=== PATIENT | female | born 1995 | race Caucasian/White ===

== ENCOUNTER → 2018-04-10 15:53 | Outpatient (REF) | payer OTHER, SELFPAY ==
--- NOTE | 2018-04-10 15:30 | PAPFT_PTH ---
PATIENT: Cassie Soto LOC: [facility] U#:[id number] AGE/SX: 30/F ROOM: RE04/10/[address]: Miguelina Kenney : 1995 BED: DIS: SPEC #: [id number] RECD: 04/11/18 12:46 STATUS: BOYD REQ #: [id number] YAAKOV: 04/10/18 15:[address]: Miguelina Kenney DEPT: [facility] Cytology RECD BY: Jamaica Corado ENTERED: 04/11/18 12:46 SP TYPE: PAPFT OTHR DR: Miriam Stone Tissues: 1 - CX/ENDOCX FOR PAP SMEARS Procedures: PAP THIN PREP/UVM Screening Comments: [id number]
== END ==
LOC: NCHCN 15:53
PROVIDERS: Visit Provider Family Medicine
DX: Z12.4 Encounter for screening for malignant neoplasm of cervix (principal); Z11.51 Encounter for screening for human papillomavirus (HPV)
CPT/HCPCS: 88142; 87624

== ENCOUNTER 2020-07-28 14:03 | Outpatient (REF) | payer BC, SELFPAY ==
[2020-08-01 07:30] LABS: SARS-CoV-2 RNA Undetected (Undetected); SARS-CoV-2 Specimen Source Nasal
== END 2020-07-28 14:23 ==
LOC: NCHCN 14:03
PROVIDERS: Visit Provider Family Medicine
DX: Z20.828 Contact with and (suspected) exposure to other viral communicable diseases (principal)
CPT/HCPCS: U0003

== ENCOUNTER 2021-04-21 09:38 | Outpatient (REF) | payer BC, SELFPAY ==
--- NOTE | 2021-04-21 09:00 | PAPFT_PTH ---
PATIENT: Cassie Soto LOC: [facility] U#:[id number] AGE/SX: 25/F ROOM: RE04/21/[address]: Miguelina Kenney : 1995 BED: DIS: 04/21/2021 SPEC #: [id number] RECD: 04/21/21 17:51 STATUS: BOYD REShon #: [id number] YAAKOV: 04/21/21 09:[address]: Miguelina Kenney DEPT: [facility] Cytology RECD BY: Jamaica Corado ENTERED: 04/21/21 17:51 SP TYPE: PAPFT OTHR DR: Miriam Stone Tissues: 1 - CX/ENDOCX FOR PAP SMEARS Procedures: PAP THIN PREP/UVM Screening Comments: [id number] (CHLAMYDIA/GC)
[2021-04-22 15:20] LABS: Chlamydia Result Negative (Negative); GC Result Negative (Negative)
== END 2021-04-21 09:39 | disposition home or self-care (01) ==
LOC: NCHCN 09:38
PROVIDERS: Visit Provider Family Medicine
DX: Z00.00 Encounter for general adult medical examination without abnormal findings (principal); Z12.4 Encounter for screening for malignant neoplasm of cervix; Z01.419 Encounter for gynecological examination (general) (routine) without abnormal findings
CPT/HCPCS: 87491; 87591; 88142

== ENCOUNTER 2022-04-04 13:18 | Outpatient (REF) | payer BC, SELFPAY ==
[2022-04-04 15:01] LABS: HCT 39.4 % (36.0-46.0); HGB 13.6 g/dL (11.2-15.7); MCH 30.8 pg (27.0-33.0); MCHC 34.5 % (32.0-36.0); MCV 89 fL (80-95); MPV 10.5 fL (8.0-11.0); Platelet Count 271 10^3/uL (130-400); RBC 4.41 10^6/uL (3.93-5.22); RDW-SD 38.9 fL; WBC 6.52 10^3/uL (4.4-10.8)
[2022-04-04 15:10] LABS: TSH (W/Ref FT4) 1.25 uIU/mL (0.36-3.74)
== END 2022-04-04 13:19 | disposition home or self-care (01) ==
LOC: NCHCN 13:18
PROVIDERS: Visit Provider Nurse Practitioner Family
DX: F41.9 Anxiety disorder, unspecified (principal)
CPT/HCPCS: 85027; 84443

== ENCOUNTER 2024-05-19 12:32 | Outpatient (REF) | payer BC, SELFPAY ==
--- NOTE | 2024-05-16 14:30 | PAPFT_PTH ---
PATIENT: Cassie Soto LOC: [facility] U#:[id number] AGE/SX: 28/F ROOM: RE05/19/[address]: Zaira Brown : 1995 BED: DIS: 05/19/2024 SPEC #: [id number] RECD: 05/19/24 13:02 STATUS: BOYD REShon #: [id number] YAAKOV: 05/16/24 14:[address]: Zaira Brown DEPT: [facility] Cytology RECD BY: Jamaica Corado Tissues: 1 - CX/ENDOCX FOR PAP SMEARS Procedures: PAP THIN PREP/UVM Screening Comments: [id number]
== END 2024-05-19 12:33 | disposition home or self-care (01) ==
LOC: LBN 12:32
PROVIDERS: PCP Nurse Practitioner Family; Visit Provider Nurse Practitioner Family
DX: Z12.4 Encounter for screening for malignant neoplasm of cervix (principal)
CPT/HCPCS: 88142

== ENCOUNTER 2024-09-17 02:54 | Outpatient (CLI) | payer BC, SELFPAY ==
[2024-09-17 15:40] LABS: Panorama Kit Sent via Fed Ex
[2024-09-17 15:44] LABS: Abs Immature Grans 0.02 10^3/uL (0.0-0.06); Absolute Basophil Count 0.02 10^3/uL (0.0-0.2); Absolute Eosinophil Count 0.17 10^3/uL (0.0-0.7); Absolute Monocyte Count 0.55 10^3/uL (0.1-0.8); Absolute Neutrophil Count 5.52 10^3/uL (1.2-6.7); Basophils % 0.2 %; HCT 35.9 % (36.0-46.0); HGB 12.5 g/dL (11.2-15.7); Immature Grans % 0.2 %; Lymphocytes % 27.6 %; MCH 30.7 pg (27.0-33.0); MCHC 34.8 % (32.0-36.0); MCV 88 fL (80-95); MPV 9.4 fL (8.0-11.0); Monocytes % 6.3 %; Neutrophils % 63.7 %; Platelet Count 247 10^3/uL (130-400); RBC 4.07 10^6/uL (3.93-5.22); RDW 12.3 % (11.7-14.6); RDW-SD 39.5 fL; WBC 8.68 10^3/uL (4.4-10.8)
[2024-09-17 16:29] LABS: TSH (W/Ref FT4) 1.21 uIU/mL (0.36-3.74); Vitamin D 25 Total 26.6 ng/mL (30-100)
[2024-09-18 19:38] LABS: HIV-1/2 Ag & Ab Screen Negative (Negative)
[2024-09-18 20:10] LABS: Hepatitis B Surface Ag Negative (Negative)
[2024-09-18 20:38] LABS: Hepatitis C Ab w Rflx HCV PCR Negative (Negative)
[2024-09-19 10:19] LABS: Rubella IgG Ab (UVM) Negative (See Note)
[2024-09-19 10:24] LABS: Varicella IgG Antibody Positive (See Note)
[2024-09-21 14:18] LABS: Syphilis IgG w/Reflex Nonreactive (Nonreactive)
[2024-09-23 18:04] LABS: Specimen WB Whole Blood
[2024-09-29 12:32] LABS: Result Summary NEGATIVE; Specimen WB Whole Blood
== END 2024-09-17 02:55 | disposition home or self-care (01) ==
LOC: LBO 02:54
PROVIDERS: Advanced Practice Midwife; PCP Nurse Practitioner Family; Visit Provider Advanced Practice Midwife
DX: Z34.91 Encounter for supervision of normal pregnancy, unspecified, first trimester (principal)
CPT/HCPCS: 36415; 81220; 81222; 81329; 82306; 86787; 86803; 86850; 86900; 86901; 87340; 87389; 84443; 85025; 86762; 86780

== ENCOUNTER 2024-09-17 15:04 | Outpatient (REF) | payer BC, SELFPAY ==
[2024-09-17 16:41] LABS: *AMPHETAMINES SCREEN URINE Negative (Negative); *BARBITURATES SCREEN URINE Negative (Negative); *BENZODIAZEPINES SCREEN URINE Negative (Negative); Cannabinoids THC Negative (Negative); Cocaine Screen,Urine Negative (Negative); METHADONE URINE SCREEN Negative (Negative); OPIATES URINE SCREEN Negative (Negative)
[2024-09-17 16:46] LABS: Tricyclic Antidepressants Negative (Negative)
[2024-09-19 11:59] LABS: Chlamydia Result Negative (Negative); GC Result Negative (Negative)
[2024-09-23 08:30] LABS: Buprenorphine Negative ng/mL (Cutoff: 5.0); Norbuprenorphine Negative ng/mL (Cutoff: 2.5)
== END 2024-09-17 15:05 | disposition home or self-care (01) ==
LOC: LBN 15:04
PROVIDERS: PCP Nurse Practitioner Family; Visit Provider Advanced Practice Midwife
DX: Z34.91 Encounter for supervision of normal pregnancy, unspecified, first trimester (principal)
CPT/HCPCS: 80307; 80348; 87491; 87591; 87086

== ENCOUNTER 2025-01-12 04:37 | Outpatient (CLI) | payer BC, SELFPAY ==
[2025-01-12 13:34] LABS: HCT 35.5 % (36.0-46.0); HGB 12.3 g/dL (11.2-15.7); MCH 30.8 pg (27.0-33.0); MCHC 34.6 % (32.0-36.0); MCV 89 fL (80-95); MPV 9.5 fL (8.0-11.0); Platelet Count 256 10^3/uL (130-400); RBC 3.99 10^6/uL (3.93-5.22); RDW 12.9 % (11.7-14.6); RDW-SD 42.3 fL; WBC 11.22 10^3/uL (4.4-10.8)
[2025-01-12 14:20] LABS: Glucose,1 Hr (Glucola) 99 mg/dL (80-140)
== END 2025-01-12 04:38 | disposition home or self-care (01) ==
LOC: LBO 04:37
PROVIDERS: PCP Nurse Practitioner Family; Visit Provider Advanced Practice Midwife
DX: Z34.92 Encounter for supervision of normal pregnancy, unspecified, second trimester (principal)
CPT/HCPCS: 36415; 82950; 85027; 86850; 90384

== ENCOUNTER 2025-01-12 15:11 | Outpatient (REF) | payer BC, SELFPAY ==
[2025-01-12 16:37] LABS: *AMPHETAMINES SCREEN URINE Negative (Negative); *BARBITURATES SCREEN URINE Negative (Negative); *BENZODIAZEPINES SCREEN URINE Negative (Negative); Cannabinoids THC Negative (Negative); Cocaine Screen,Urine Negative (Negative); METHADONE URINE SCREEN Negative (Negative); OPIATES URINE SCREEN Negative (Negative)
[2025-01-12 16:38] LABS: Tricyclic Antidepressants Negative (Negative)
[2025-01-13 12:24] LABS: Fentanyl Scr w/Rfx Confirm Negative ng/mL (<1)
[2025-01-17 12:58] LABS: Buprenorphine Negative ng/mL (Cutoff: 5.0); Norbuprenorphine Negative ng/mL (Cutoff: 2.5)
== END 2025-01-12 15:12 | disposition home or self-care (01) ==
LOC: LBN 15:11
PROVIDERS: Advanced Practice Midwife; PCP Nurse Practitioner Family; Visit Provider Advanced Practice Midwife
DX: Z34.93 Encounter for supervision of normal pregnancy, unspecified, third trimester (principal); Z3A.28 28 weeks gestation of pregnancy
CPT/HCPCS: 80307; 80348

== ENCOUNTER 2025-02-11 02:06 | Outpatient (CLI) | payer BC, SELFPAY ==
--- NOTE | 2025-02-11 06:30 | DI.US_ITS ---
Exam(s) US OB DELANEY WEIGHT EXAM: US OB DELANEY WEIGHT CLINICAL HISTORY: S>D,uterine size discrepancy,O26.849. TECHNIQUE: Transabdominal obstetrical ultrasound performed. COMPARISON: US US OB F/U FACIAL/LVOT/RVOT from 12/03/2024 FINDINGS: Number of fetuses: 1 position: CEPHALUC Placental location: There is a grade 2 posterior and fundal placenta. No evidence of previa. BIOMETRIC DATA: BPD: 9.51cm, 38weeks 6days HC: 34.77cm, 40weeks 2days AC: 33.64cm, 37weeks 4days FL: 6.47cm, 33weeks 3days EFW: 3,085.04g, 7lb, 97% Composite Age: 37weeks 4days BABAK: 02/28/2025 Heart Rate: 125bpm Amniotic fluid index: 17.95cm. The largest pocket measures 7.3 cm. IMPRESSION: 1. Single live intrauterine gestation as above. 2. The femur length corresponds to 33 weeks 3 days. 3. Estimated weight is 3085gms. This is greater than the 97th percentile. 4. Amniotic fluid index is 18 cm. The largest pocket measures 7.3 cm. DATA REPOSITORY:
== END 2025-02-11 02:26 ==
LOC: DI 02:06
PROVIDERS: PCP Nurse Practitioner Family; Visit Provider Advanced Practice Midwife
DX: O26.843 Uterine size-date discrepancy, third trimester (principal); Z3A.40 40 weeks gestation of pregnancy
CPT/HCPCS: 76816

== ENCOUNTER 2025-03-04 10:27 | Outpatient (REF) | payer BC, SELFPAY | END 2025-03-04 10:28 | disposition home or self-care (01) | LOC: LBN 10:27 | PROVIDERS: PCP Nurse Practitioner Family; Visit Provider Advanced Practice Midwife | DX: Z34.01 Encounter for supervision of normal first pregnancy, first trimester (principal) | CPT/HCPCS: 87081 ==

== ENCOUNTER 2025-03-23 11:06 | Inpatient (IN) | payer BC, SELFPAY ==
[2025-03-23] VITALS (76 sets, daily range): BP systolic 84–144; BP diastolic 52–93; PULSE 54–198; RESP 16–17; TEMP 36.5–38.3; O2SAT 83–100; BMI 34.7
--- NOTE | 2025-03-23 11:10 | HPE_ITS ---
Date of service: 03/23/25 Time of Service: 11:10 Assessment and Plan Assessment and plan (1) PROM with onset of labor within 24 hours of rupture: Status: Acute Assessment and plan: A: 29 yo G1 @ 38+5 wks, PROM @ 0600, clear fluid, confirmed Spontaneous onset early labor, GBS negative No increased risk of SD or PPH Category 1 tracing on admission, favorable cvx with Schaefer score=8 P: Admit to L&S, draw CBC and T&S Expectant management at this time Monitor for progression of labor May make recommendation, review options for IOL @ 1800 (12 hrs PROM) Anticipate OB-HPI Labor/Delivery History of Present Illness Reason for Visit: PROM @ TERM Chief Complaint: Suspected Rupture of Membranes , Associated Signs and Symptoms of Suspected ROM: large gush of fluid upon waking at 0600 today, increasing contractions afterwards. No bleeding, no nausea or vomiting.. BABAK Calculator Estimated Delivery Date Method Current WG Current Estimate 04/01/25 Ultrasound #1 38w 5d Other Estimates 04/16/25 LMP (Uncertain) 36w 4d History of Present Expected Delivery Route/Plan - CNM FOB - Natalio Greer (first baby) BB yes to circ Varicella non-immune, offer vaccinate PP (pt accepts) Prepared to ask for epidural if she needs to, will try nitrous, shower, tub, etc GBS negative Specific Issues/Plan 1. 5-P's positive. Initial neg, 28wk UDS neg 2. Family hx congenital microcephaly, pt's brother () [facility] genetic counselor referral sent 2a. cfDNA low risk male, CF/SMA negative, AFP - declined b. Level 2 FAS at [facility] declined, done at [facility]-- repeat views RVOT done & nml 3. Anxiety + Depression, taking Lexapro 10mg, no therapist 4. Rh negative, RhoGam @ 28 wks- done Assessment: History Reviewed & Current Informed Consent Informed Consent: Induction of Labor (Discussed indications and timing of IOL in PROM situations, pt feels she may be ready for pitocin induction at the 12 hour silvia if she is not progressing by then.) and Risk,Benefits,Alternatives Discussed Review of Systems All systems reviewed & are unremarkable except as noted in HPI and below PFSH All Active Problems (Updated 03/23/25 @ 11:21 by Sofia Turner) PROM with onset of labor within 24 hours of rupture (Acute) Rubella non-immune status, antepartum (Acute) Rh negative state in antepartum period (Acute) Asthma (Chronic) exercise induced Depression with anxiety (Chronic) treats with Lexapro 10mg Atopic eczema (Chronic) Allergic rhinitis, seasonal (Chronic) (Acute) Medical History (Updated 03/23/25 @ 11:21 by Sofia Turner) Uterine size date discrepancy Family history of congenital microcephaly Panic attack Family History (Updated 08/14/24 @ 15:58 by Agueda Chase CNM) Father Hypertension Mother Hypertension Maternal Grandfather Hypertension Paternal Grandfather Diabetes Hypertension Maternal Grandmother Hypertension Heart disease Paternal Grandmother Hypertension Brother , age 15, pneumonia Congenital defect was unable to walk or talk, age 15 Social History (Updated 09/17/24 @ 14:27 by Cassidy Burr CNM) Smoking/Tobacco Use Status: Never Second Hand Exposure: No Smoking risk assessment performed?: Yes Alcohol Intake: former Drug use: Never Substance use type: does not use Adopted: No Household members: spouse Housing: house Communication Needs: None Education Level: college current occupation: teacher Pets and animals: Yes Pets and animals: dog(s) Sexually active: Yes Do you think of yourself as: straight/heterosexual Current gender identity: male Do you feel safe at home: Yes Do you feel safe in your relationship?: Yes Female Reproductive History Menstrual control method: pills History History 1 Para 0 Hx # Term Pregnancies 0 Multiple births 0 Hx # Pregnancies 0 Ectopic pregnancies 0 AB induced 0 Hx Number of Living Children 0 AB spontaneous 0 Meds Allergies and Home Medications Allergies Allergy/AdvReac Type Severity Reaction Status Date / Time cats Allergy Mild runny nose Uncoded 03/18/25 09:45 dogs Allergy Mild runny nose Uncoded 03/18/25 09:45 Home Medications ?Medication ?Instructions ?Recorded ?Confirmed ?Type cetirizine 10 mg tablet (Zyrtec) 10 mg PO DAILY PRN 03/23/25 History escitalopram oxalate 10 mg tablet 10 mg PO DAILY 05/1803/23/25 History montelukast 10 mg tablet 10 mg PO DAILY 05/18/23/09/27 History vits no.126-ferrous fum 1 tab PO DAILY 03/23/25 History 28 mg iron-folic acid 800 mcg tablet (Classic ) Exam Physical Exam Vital signs: Pulse BP Pulse Ox 69 131/87 100 03/23/25 11:09 03/23/25 10:42 03/23/25 11:07 Vital Signs Reviewed: Yes Constitutional Constitutional: no acute distress, average body habitus and cooperative Detailed Labor and Delivery Exam Dilation: 4 Effacement (%): 90 station: -2 Cervix position: posterior Consistency: soft SCHAEFER Score(Cervical Ripeness Score): 8 Amniotic Membrane Status: Ruptured Rupture Method: Spontaneous Ferning: Present Contraction Frequency(min): irregular Contraction Intensity: Mild/Moderate Fetus A Heart Rate Baseline: 140 Monitor Accelerations: 15 X 15 Monitor Decelerations: None Variability: Moderate (6-25 BPM) Categories: Category I Est. Weight: 7 lb 14.986 oz Est. Weight: 3600 gms Date of Membrane Rupture: 03/23/25 Time of Membrane Rupture: 06:00 HEENT Exam HEENT Exam: Normal Neck Exam Neck Exam: Normal Chest/Brest/Axilla Exam Chest Exam: Normal Breast Exam Breast Exam: Not Done Respiratory Exam Respiratory Exam: Normal Cardiovascular Exam Cardiovascular Exam: Normal Abdominal Exam Abdominal Exam: Normal (Gravid, nontender) Rectal Exam Rectal Exam: Normal Exam Exam: Normal Extremities Exam Extremities Exam: Normal Back/Spine/Pelvis Exam Back Exam: Normal Pelvis Adequate: Yes Skin Exam Skin Exam: Normal Neurological Exam Neurological Exam: Normal Psychiatric Exam Psychiatric Exam: Normal Results Results Group Beta Strep: Negative Blood Type: A- Rubella Status: Nonimmune Varicella Immunity: Immune Risk Assessment Risk for Shoulder Dystocia Historical/Initial OB: NEGATIVE FOR: Pelvic Abnormality, Pre- BMI>30, Previous Shoulder Dystocia or Previous Macrosomia 36 Weeks: NEGATIVE FOR: Current Gestational DM, EFW>4500gms or Maternal Weight G ain>40lbs Increased Risk?: No Delivery Plan @ 36wks: Risk for Pre-Eclampsia Yes, if one or more: NEGATIVE FOR: Hx Pre-E/Gest HTN, Chronic HTN, Multiple Gestation, Pre-gestational DM, Renal Disease, Systemic Lupus or APA Syndrome Yes, if 2 or more: POSITIVE FOR: Nulliparity; NEGATIVE FOR: Age>= 35 yrs, >10yr btwn pregnancies, BMI>30, ethinicty, Mother/Sister w/ Pre-E or Previous IUGR Risk for Post- Hemorrhage Initial: NEGATIVE FOR: Multiple Gestation, Previous PPH, Known Clotting Deficiency, Grand Multiparity or Anticoagulation 36 Weeks: NEGATIVE FOR: Anemia, hgb<10, Low platelets(thrombocytopenia), Gestational HTN or Pre-E, Polyhydraminios or EFW>4500gms At Risk?: No Counseled re: Active Management: Yes Risks Reviewed Risks Reviewed Upon Admission: Yes
[2025-03-23 11:39] LABS: HCT 37.0 % (36.0-46.0); HGB 12.7 g/dL (11.2-15.7); MCH 30.8 pg (27.0-33.0); MCHC 34.3 % (32.0-36.0); MCV 90 fL (80-95); MPV 10.7 fL (8.0-11.0); Platelet Count 220 10^3/uL (130-400); RBC 4.12 10^6/uL (3.93-5.22); RDW 13.2 % (11.7-14.6); RDW-SD 42.9 fL; WBC 12.54 10^3/uL (4.4-10.8)
--- NOTE | 2025-03-23 14:06 | PGE_ITS ---
Date of service: 03/23/25 Time of Service: 14:06 Pelvic Exam Dilation: 6 (per RN exam) Cervix Position: mid Contractions Monitor Mode: External Contraction Frequency(min): q3-4 Intensity: Moderate Fetus A Monitor: External (US) Heart Rate Baseline: 130 Variability: Moderate (6-25 BPM) Categories: Category II Accelerations: 15 X 15 Decelerations: Variable Recurrence: Intermittent Amniotic Membrane Status: Ruptured Assessment Note: mild periodic variables noted, not recurrent, overall reassuring with stable ba seline and moderate variability Assessment and Plan Assessment and plan (1) PROM with onset of labor within 24 hours of rupture: Status: Acute Assessment and plan: A: Spontaneous progression to active labor in primipara Using nitrous and position changes to good effect Overall reassuring FHT, continue EFM to monitor persistence of variables with position changes P: Comfort measures as pt desires Anticipate Objective Vital Signs Reviewed: Yes Subjective Interval history since last seen: Breathing and coping well with contractions
[2025-03-23] MEDS: FentaNYL/ROPIvacaine 2 mcg/ml and 0.1% 200 ML CADD Cassette EP ×2 (16:00→17:00)
--- NOTE | 2025-03-23 16:04 | W.PM.OBNL1 ---
Date of service: 03/23/25 Time of Service: 16:04 Informed Consent Informed Consent: Regional Anesthesia and Risk,Benefits,Alternatives Discussed Pelvic Exam Dilation: 7 Effacement (%): 100 station: -1 Contractions Monitor Mode: External Contraction Frequency(min): q3-4 Intensity: Moderate/Strong Fetus A Monitor: Doppler Heart Rate Baseline: 140 FHR Rhythm: Regular Characteristics: Normal Amniotic Membrane Status: Ruptured Assessment and Plan Assessment and plan (1) PROM with onset of labor within 24 hours of rupture: Status: Acute Assessment and plan: A: Pt requests epidural, progressed to 7 cm dilation P: TREASURY SPECIALIST Paged by nsng supervisor cleaning and annealing, initiate IV access Anticipate Objective Vital Signs Reviewed: Yes Subjective Interval history since last seen: Pt has decided she would like an epidural
--- NOTE | 2025-03-23 16:22 | W.ANESPRE ---
General Info Date of Service Date Performed: 03/23/25 Height: 5 ft 4 in Weight: 91.626 kg Body Mass Index (BMI): 34.7 Meds Allergies and Home Medications Allergies Allergy/AdvReac Type Severity Reaction Status Date / Time cats Allergy Mild runny nose Uncoded 03/18/25 09:45 dogs Allergy Mild runny nose Uncoded 03/18/25 09:45 Home Medication ?Medication ?Instructions ?Recorded cetirizine 10 mg tablet (Zyrtec) 10 mg PO DAILY PRN 05/18/23 escitalopram oxalate 10 mg tablet 10 mg PO DAILY 05/18/23 montelukast 10 mg tablet 10 mg PO DAILY 05/18/23 vits no.126-ferrous fum 1 tab PO DAILY 01/12/25 28 mg iron-folic acid 800 mcg tablet (Classic ) Current Visit Medications: Current Medications Generic Name Dose Route Start Last Admin Trade Name Freq PRN Reason Stop Dose Admin Escitalopram Oxalate 10 mg 03/24/25 08:30 Escitalopram 10 Mg Tab PO DAILY TORIN Fentanyl/Ropivacaine 200 ml 03/23/25 15:30 Fentanyl/Ropivacaine 2 Mcg/Ml And 0.1% 200 Ml Cadd Cassette EP DIRECTED TORIN Montelukast Sodium 10 mg 03/24/25 08:30 Montelukast 10 Mg Tab PO DAILY TORIN PFSH Active Problems Active Problems: Problem Status Onset Code PROM with onset of labor within 24 hours of rupture Acute O42.00 Rubella non-immune status, antepartum Acute O09.899, Z28.39 Rh negative state in antepartum period Acute O26.899, Z67.91 Asthma Chronic J45.909 Depression with anxiety Chronic F41.8 Atopic eczema Chronic L20.9 Allergic rhinitis, seasonal Chronic J30.2 Acute Z34.90 Medical History Medical History (Updated 03/23/25 @ 11:21 by Sofia Turner) Uterine size date discrepancy Family history of congenital microcephaly Panic attack Tobacco Smoking/Tobacco Use Status: Never Second hand exposure: No Alcohol Alcohol Intake: former Substance Use Substance use: Never Substance use type: does not use Prental History History 1 Para 0 Hx # Term Pregnancies 0 Multiple births 0 Hx # Pregnancies 0 Ectopic pregnancies 0 AB induced 0 Hx Number of Living Children 0 AB spontaneous 0 Vital Signs and Lab Results Vital Signs Most Recent Vital Signs in EMR: Most Recent Vital Signs Temp Pulse Resp BP Pulse Ox 36.6 C 75 16 127/77 100 03/23/25 14:11 03/23/25 16:17 03/23/25 11:14 03/23/25 16:17 03/23/25 16:17 Lab Results 03/23/25 11:29 Blood Type / Crossmatch: Antibody Screen POSITIVE Today Complete Blood Count: WBC, (4.4-10.8) 12.54 10^3/uL H Today, 11:29 RBC, (3.93-5.22) 4.12 10^6/uL Today, 11:29 Hgb, (11.2-15.7) 12.7 g/dL Today, 11:29 Hct, (36.0-46.0) 37.0 % Today, 11:29 Plt Count, (130-400) 220 10^3/uL Today, 11:29 Anesthesia Assessment and Plan Anesthesia History Personal History: No History of Anesthesia Complications Family History: No Family History of Anesthesia Complications Exercise Tolerance Exercise Tolerance: Metabolic Equivalents>4 Pertinent Negatives Pertinent Negatives: No Symptoms of GERD, No Major Cardiovascular Symptoms or Complaints, No Major Pulmonary Symptoms or Complaints and No History of CVA/TIA Cardiac & Pulmonary Exam Cardiac Exam: Normal S1/S2 Heart Sounds Pulmonary Exam: Clear Bilateral Breath Sounds Implantable Cardiac Device Does patient have a Pacemaker or an ICD?: No Airway Exam Known Difficult Airway: No Mallampati Class: 2 Mouth Opening: Normal (> 3cm) Thyromental Distance: Greater than 3 cm Neck Range of Motion: Full ROM Neck Circumference: Normal Teeth Condition: Normal Dentition ASA Classification ASA Score: ASA 2 Emergency Case?: No NPO Status NPO Status: NPO Clears >2 hours, Solids >8 hours Status Status: Confirmed Anesthesia Plan Resuscitation Status: Full Code Anesthesia Technique: Epidural Anesthesia Airway Planned: Natural Airway Pain Management: Surgeon and patient request nerve block Monitors Used: Standard Monitors
--- NOTE | 2025-03-23 16:23 | W.ANESNEU ---
Epidural/Spinal Catheter Date Performed: 03/23/25 Procedure Start: 15:59 Procedure Stop: 16:16 Requesting Provider: Sofia Turner Procedure Location: Obstetrics Reason Performed: Labor Epidural Standard Monitors Applied: Blood Pressure, SpO2 and ETCO2 Patient Position: Sitting Sedation Given (Indicate Dose Given): No Sedation given Patient Mental Status: Awake Sterility: Hand Hygiene, Surgical Cap, Surgical Mask, Sterile Gloves, Sterile Drape/Sheet and Chlorhexidine Procedure Location: L3-L4 Interspace Epidural Needle: Tuohy 17 Guage Needle Length: 4 Inch Needle Approach: Midline Epidural Procedure: Skin Prepped, Sterile Drape Placed, 1% Lidocaine to skin and subcutaneous tissue with 25G needle, Tuohy Needle placed, ROMY to Saline Used, Epidural Catheter Placed, Negative Heme, Negative CSF Flow and Tuohy Needle Removed Catheter Placed?: Catheter Placed Test Dose (Indicate Dose Given): 5ml 1.5% Lidocaine with 1:200K Epinephrine Given and Negative Test Dose Loss of Resistance Depth (cm): 9 Catheter depth at skin (cm): 14 Dressing: Tegaderm Applied, Mastisol Used and Dressing reinforced with Tape Epidural Provider Bolus (Indicate Dose Given): Total Ropivacaine 0.1% with Fentanyl 2mcg/ml Given from pump. (ml) Dose:: 10 Additives (Indicate Dose Given ): None Infusion Medication: Medication Infusion Began Medication Infusion: Ropivacaine 0.1% with Fentanyl 2mcg/ml Maintenance Infusion Rate (ml/hour): 10 PCEA Bolus Dose (ml): 5 Block Level: N/A Paresthesia: None Ultrasound: Not Used Number of Attempts (See previous attempts in note section): 2 Procedure Tolerated: No Complications and Patient tolerated well Procedure Outcome: Successful Performed By: Tom Estrada
[2025-03-23 19:38] LABS: Glucose (CSF) 28 mg/dL (40-70)
--- NOTE | 2025-03-23 20:09 | W.PM.OBNL1 ---
Date of service: 03/23/25 Time of Service: 20:09 Informed Consent Informed Consent: Augmentation of Labor and Risk,Benefits,Alternatives Discussed Pelvic Exam Dilation: 9 Effacement (%): 100 station: 0 Position: VIVIAN Contractions Monitor Mode: External Contraction Frequency(min): Q2-4 Intensity: Moderate/Strong Fetus A Monitor: External (US) Heart Rate Baseline: 125 Variability: Moderate (6-25 BPM) Categories: Category I Accelerations: Present Decelerations: Early Amniotic Membrane Status: Ruptured Assessment and Plan Assessment and plan (1) PROM with onset of labor within 24 hours of rupture: Status: Acute Assessment and plan: A: Effective pain relief, inadequate contraction pattern In general tracing runs category 1 with early decels, occasional variable noted, nonrecurrent P: low dose pitocin augmentation Encourage position changes to facilitate descent Anticipate Objective Vital Signs Reviewed: Yes Objective Narrative Objective Narrative: Normotensive and afebrile Subjective Interval history since last seen: Remains comfortable with anesthesia, has some movement of left leg. Discussed pitocin augmentation, R&B reviewed, pt consents. Results Hemoglobin/Hematocrit: Hgb 12.7 g/dL (11.2-15.7) 03/23/25 11:29 Hct 37.0 % (36.0-46.0) 03/23/25 11:29 Abnormal Lab Findings: Abnormal Labs 03/23/25 03/23/25 11:29 19:32 WBC 12.54 H CSF Glucose 28 L
--- NOTE | 2025-03-23 23:42 | OBVDS_ITS ---
Date of service: 03/24/25 Time of Service: 22:30 OB Labor/ Delivery Information Baby A Delivery Delivery Method: Spontaneaous Presentation: Cephalic Cephalic Position: Vertex Vertex Position: Left Occipital Anterior Breech Position: N/A Cord Description-Baby A: 3 Vessels, Nuchal Cord and Reduced (overhead) Amniotic Fluid: Clear Quantitative Blood Loss: 350 Delivery Outcome: Liveborn Transferred: Remains with Mother Note: Cvx exam @ 1800 was 8 cm and 0 station, 2 hrs later progress to 9 cm was documented. Category 2 tracing with recurrent though mild periodic variable decels had developed, baseline stable and moderate variability provided some reassurance and pitocin augmentation was planned however due to the persistence of the variables was held. Cvx recheck was done an hour later and found to be fully dilated and descent to +2 station. 2nd stage huddle was completed, and coached pushing was begun. Due to increasingly deep and lengthening decels as head descended Dr. Barrios was notified and requested to be in unit for delivery, strong maternal efforts resulted in of a nonvigorous male , tight nuchal cord was reduced overhead and after an initial drying and stimulation minute on mother's chest, cord was clamped then cut by FOB and moved to warmer for further evaluation. Section of cord was set aside for cord gas collection, cord blood collection also done, pitocin bolus started, Crowe placenta delivered intact with VC, fundus firm and below umbilicus and lochia was minimal. was stabilized and returned to mother for S2S by 8 minutes of age and Peds was notified of delivery. 2nd degree perineal laceration with left introital skin tag repaired with 2.0 Vicryl and 3.0 Rapide suture, right labia split repaired with 3.0 Vicryl under residual regional anesthesia which was turned off at the moment of delivery. Strong family bonding was observed, apgars 7/8, weight 3740 gms. Providers Doctor: Yaneth Barrios Nurse Double Needle Stitcher: Sofia Turner Enterprise Resource Planning Consultant: Tom Estrada Marine Pipe Welder: Catina Murry Nurse: Raven Malik Nurse: Colleen Rivera Labor/Delivery Information Number of Babies in Womb: 1 Steroids Given: None Reason Steroids Not Administered: N/A Group Beta Strep: Negative Antibiotics Administered: No Rubella Status: Nonimmune Blood Type: A- Varicella Immunity: Immune Shoulder Dystocia: No Stages of Labor Onset of Labor Date: 03/23/25 Onset of Labor Time: 06:00 Complete Dilatation Date: 03/23/25 ROM Baby A: 03/23/25 ROM Baby A: 06:00 ROM Total Time- Baby A: [id number] Delivery Date-Baby A: 03/23/25 Infant Delivery Time-Baby A: 21:42 Placenta Delivery Date-Baby A: 03/23/25 Placenta Delivery Time-Baby A: 21:50 Labor-Stage 3 Duration: 8 minutes Total Length of Labor-Baby A: 15 hours and 42 minutes Placenta Status: Delivered Baby A Infant Gender: Male Gestational Status: Early Term (37-38.6 wks) Gestational Age in Weeks/Days: 38 Weeks and 5 Days weight: 8 lb 3.925 oz Length-Baby A: 20.5 in Head Circumference-Baby A: 14 in Score-1 Minute Interval(Baby A) Heart Rate-1 minute: 100 BPM or Greater Respiratory Effort- 1 minute: Slow Respiration/Weak Cry Muscle Tone-1 minute: Minimal Flexion/Extension Reflex Response-1 minute: Prompt Response Color-1 minute: Bluish Hands or Feet Total Score-1 minute: 7 Score-5 Minute Interval(Baby A) Heart Rate- 5 minute: 100 BPM or Greater Respiratory Effort-5 minute: Slow Respiration/Weak Cry Muscle Tone-5 minute: Active Movement Reflex Response-5 minute: Prompt Response Color-5 minute: Bluish Hands or Feet Total Score- 5 minute: 8
[2025-03-24] VITALS: RESP 17
[2025-03-24] MEDS: Acetaminophen 325 MG TAB 650 MG PO ×4 (00:30→18:01)
[2025-03-24] MEDS: Dibucaine 1% 28 GM TUBE TP (00:30)
[2025-03-24] MEDS: Ibuprofen 600 MG TAB PO ×4 (00:30→20:59)
[2025-03-24] MEDS: Hamamelis Leaf/Glycerin 100 EACH BOX PR (00:30)
[2025-03-24 01:30] VITALS: BP 130/80; PULSE 90; TEMP 37
[2025-03-24 07:30] VITALS: BP 127/81; PULSE 83; RESP 12; TEMP 36.9
[2025-03-24] MEDS: Escitalopram 10 MG TAB PO (07:52)
[2025-03-24] MEDS: Docusate Sodium 100 MG CAP PO (07:52)
--- NOTE | 2025-03-24 11:06 | W.ANESPOSTOP ---
Postoperative Evaluation Date, Time and Location Date Performed: 03/24/25 Time Performed: 10:56 Patient Location: Obstetrics Vital Signs Most Recent Imported Vital Signs: Most Recent Vital Signs Temp Pulse Resp BP Pulse Ox 36.9 C 83 12 127/81 99 03/24/25 07:30 03/24/25 07:30 03/24/25 07:30 03/24/25 07:30 03/23/25 21:52 Pain Score Most Recent Pain Score: Most Recent Pain Score Pain Level 3 03/24/25 07:53 Assessment Mental Status: Awake (Alert & Oriented to Patient Baseline) Airway and Respiratory Function: Patent airway with normal (patient baseline) respiratory exam Cardiovascular Function: Hemodynamically Stable Hydration Status: Adequately Hydrated Nausea & Vomiting: No Nausea or Vomiting Pain: Pain is tolerable per patient Peripheral Nerve Block: Patient did not receive a nerve block Teaching Patient Teaching: Other (Discussed rationale for keeping the catheter in place for 24 hrs. Reviewed s/s of PDPH and conservative treatment if it were to occur.) Postoperative Comments:: Leg strength and mobility intact bilaterally.
[2025-03-24 20:00] VITALS: BP 130/80; PULSE 80; RESP 16; TEMP 37
--- NOTE | 2025-03-24 22:01 | W.PM.OBPNV1 ---
Date of service: 03/24/25 Time of Service: 10:30 Assessment and Plan Assessment and plan (1) Term delivered: Status: Acute Assessment and plan: A: PPD#1, satisfied with experience off to a good start s/p regional anesthesia that returned CSF P: [employer] ordered delayed removal of catheter support, routine PP care plan discharge tomorrow, will be observing for spinal HUA Offer MMR and RhoGam if indicated Subjective Subjective Patient comments: Pain well controlled, Tolerating diet, Flatus present and Other (feeling some mid back and neck discomfort) Patient's Mood: happy [place] baby status: Doing well, Nursing well, Rooming in and Strong Bonding Observed feeding status: Exclusively breast feeding Narrative: Epidural catheter in place per SUPERVISOR [employer] orders for 24 hrs Exam Physical Exam Vital signs: Temp Pulse Resp BP Pulse Ox 98.4 F 83 12 127/81 99 03/24/25 07:30 03/24/25 07:30 03/24/25 07:30 03/24/25 07:30 03/23/25 21:52 Vital Signs Reviewed: Yes Constitutional Constitutional: no acute distress, average body habitus and cooperative HEENT Exam HEENT Exam: Normal Neck Exam Neck Exam: Normal Breast Exam Bilateral: Breast Exam: Normal and Soft Nipple Exam: Normal and Uninjured Respiratory Exam Respiratory Exam: Normal Cardiovascular Exam Cardiovascular Exam: Normal Abdominal Exam Abdomen: Other (soft, nontender) Fundal Exam Fundus: Below Umbilicus and Firm Rectal Exam Rectal Exam: Hemmorhoids Exam Perineum: Edematous and Repair Intact Extremities Exam Extremity Exam: Normal, Full ROM and Warm to Touch Back/Spine/Pelvis Exam Back Exam: Normal (epidural catheter in place) Skin Exam Skin Exam: Normal Neurological Exam Neurological Exam: Normal Psychiatric Exam Psychiatric Exam: Normal
[2025-03-25] MEDS: Escitalopram 10 MG TAB PO (08:43)
[2025-03-25] MEDS: Ibuprofen 600 MG TAB PO ×2 (08:43→15:15)
[2025-03-25] MEDS: Acetaminophen 325 MG TAB 650 MG PO ×2 (08:43→13:00)
[2025-03-25 10:00] VITALS: BP 116/81; PULSE 84; RESP 18; TEMP 36.8
--- NOTE | 2025-03-25 11:26 | OBPPV_ITS ---
Date of service: 03/25/25 Time of Service: 11:26 Assessment and Plan Assessment and plan (1) Term delivered: Status: Acute Assessment and plan: A: PPD#2, satisfied with experience P: Discharge to home today Offer MMR and RhoGam if indicated Written instructions reviewed and given to pt F/up @ 2 & 6 weeks Subjective Subjective Patient comments: Pain well controlled (still has some neck and upper back soreness, consistent with muscle strain), Tolerating diet and Flatus present Patient's Mood: happy, tired baby status: Doing well, Nursing well, Rooming in and Strong Bonding Observed [place] feeding status: Exclusively breast feeding Exam Physical Exam Vital signs: Temp Pulse Resp BP Pulse Ox 98.6 F 80 16 130/80 99 03/24/25 20:00 03/24/25 20:00 03/24/25 20:00 03/24/25 20:00 03/23/25 21:52 Vital Signs Reviewed: Yes Constitutional Constitutional: no acute distress, average body habitus and cooperative HEENT Exam HEENT Exam: Normal Neck Exam Neck Exam: Normal Breast Exam Bilateral: Breast Exam: Normal and Soft Respiratory Exam Respiratory Exam: Normal Cardiovascular Exam Cardiovascular Exam: Normal Abdominal Exam Abdomen: Other (soft, nontender) Fundal Exam Fundus: Below Umbilicus and Firm Rectal Exam Rectal Exam: Hemmorhoids Exam Perineum: Edematous and Repair Intact Extremities Exam Extremity Exam: Normal, Full ROM and Warm to Touch Back/Spine/Pelvis Exam Back Exam: Normal (epidural catheter in place) Skin Exam Skin Exam: Normal Neurological Exam Neurological Exam: Normal Psychiatric Exam Psychiatric Exam: Normal
--- NOTE | 2025-03-25 15:55 | W.PM.OBDISCH ---
Date of service: 03/25/25 Time of Service: 15:55 DS: Diagnosis Discharge Diagnosis (1) Term delivered: Status: Acute Discharge Plan Disposition Patient Disposition: Home Condition: Good Discharge Details Reason For Visit: PROM @ TERM Admit Date/Time: 03/23/25 11:06 Admit Provider: Sofia Turner Attending Provider: Sofia Turner Primary Care Provider: Zaira Brown Hospital Course Hospital Course: Admitted after SROM in early labor, under epidural anesthesia, nkl course Home Meds and New Rx's Prescriptions: No Action Classic 28 mg iron- 800 mcg tablet 1 tab PO DAILY montelukast 10 mg tablet 10 mg PO DAILY escitalopram oxalate 10 mg tablet 10 mg PO DAILY cetirizine [Zyrtec] 10 mg tablet 10 mg PO DAILY PRN Discharge Instructions Additional Instructions: Please keep your 2 & 6 wk apointments with the midwives, call for any and all concerns. Stand Alone Forms: BC Instructions, BC Post Vaginal Deliver Activity:: Activity as Tolerated Equipment/Supplies:: No Equipment Needed Diet:: Normal Diet Discharge Orders Discharge Orders: Discharge Order (Routine); Ordered 03/25/25 Ordered By: Sofia Turner OB:DS Summary Summary Vaginal Delivery Method: Spontaneaous Contraception Discussed Contraception Discussed: Yes Contraceptive Plan: Foam/Condoms, Infant Gender-Baby A: Male weight: 8 lb 3.925 oz Status at Discharge Functional status at discharge: independent ambulation Overall status at discharge: patient is not back to baseline Mental Status: mental status grossly normal Speech and Movement: speech and movement normal and speech clear Mood: congruent mood Affect: normal affect Exam Physical Exam Vital signs: Temp Pulse Resp BP Pulse Ox 98.2 F 84 18 116/81 99 03/25/25 10:00 03/25/25 10:00 03/25/25 10:00 03/25/25 10:00 03/23/25 21:52 Constitutional Constitutional: no acute distress, average body habitus and cooperative HEENT Exam HEENT Exam: Normal Neck Exam Neck Exam: Normal Breast Exam Bilateral: Breast Exam: Normal and Soft Respiratory Exam Respiratory Exam: Normal Cardiovascular Exam Cardiovascular Exam: Normal Abdominal Exam Abdomen: Other (soft, nontender) Fundal Exam Fundus: Below Umbilicus and Firm Rectal Exam Rectal Exam: Hemmorhoids Exam Perineum: Edematous and Repair Intact Extremities Exam Extremity Exam: Normal, Full ROM and Warm to Touch Back/Spine/Pelvis Exam Back Exam: Normal (epidural catheter in place) Skin Exam Skin Exam: Normal Neurological Exam Neurological Exam: Normal Psychiatric Exam Psychiatric Exam: Normal PFSH All Active Problems (Updated 03/24/25 @ 22:05 by Sofia Turner) Term delivered (Acute) Rubella non-immune status, antepartum (Acute) Rh negative state in antepartum period (Acute) Asthma (Chronic) exercise induced Depression with anxiety (Chronic) treats with Lexapro 10mg Atopic eczema (Chronic) Allergic rhinitis, seasonal (Chronic) Medical History (Updated 03/24/25 @ 22:05 by Sofia Turner) PROM with onset of labor within 24 hours of rupture Uterine size date discrepancy Family history of congenital microcephaly Panic attack Family History (Updated 08/14/24 @ 15:58 by Agueda Chase CNM) Father Hypertension Mother Hypertension Maternal Grandfather Hypertension Paternal Grandfather Diabetes Hypertension Maternal Grandmother Hypertension Heart disease Paternal Grandmother Hypertension Brother , age 15, pneumonia Congenital defect was unable to walk or talk, age 15 Social History (Updated 09/17/24 @ 14:27 by Cassidy Burr CNM) Smoking/Tobacco Use Status: Never Second Hand Exposure: No Smoking risk assessment performed?: Yes Alcohol Intake: former Drug use: Never Substance use type: does not use Adopted: No Household members: spouse Housing: house Communication Needs: None Education Level: college current occupation: teacher Pets and animals: Yes Pets and animals: dog(s) Sexually active: Yes Do you think of yourself as: straight/heterosexual Current gender identity: male Do you feel safe at home: Yes Do you feel safe in your relationship?: Yes Female Reproductive History Menstrual control method: pills History History 1 Para 0 Hx # Term Pregnancies 0 Multiple births 0 Hx # Pregnancies 0 Ectopic pregnancies 0 AB induced 0 Hx Number of Living Children 0 AB spontaneous 0 DS: Data Vitals/I&O Vitals and I&O: Vital Signs Temperature 98.2 F 03/25/25 10:00 Temperature Source Oral 03/25/25 10:00 Pulse 84 03/25/25 10:00 Pulse Rhythm Regular 03/25/25 08:00 Respiratory Rate 18 03/25/25 10:00 Respiratory Depth Normal 03/25/25 08:00 Blood Pressure 116/81 03/25/25 10:00 Blood Pressure Mean 92 03/25/25 10:00 Pulse Oximetry 99 03/23/25 21:52 Oxygen Delivery Method Room Air 03/23/25 11:14 Oxygen Flow Rate 0 03/23/25 11:14 Pain Level 4 03/25/25 15:15 Comment Ephedrine drawn and ready to administer to pt, but BP cam eback up to 111/68, so RN held ephedrine at this time. 03/23/25 17:40
== END 2025-03-25 16:30 | disposition home or self-care (01) | DRG 807 ==
LOC: BCD 11:37 → OBS 11:37
PROVIDERS: Nurse Anesthetist, Certified Registered; Admitting Provider Advanced Practice Midwife; PCP Nurse Practitioner Family; Visit Provider Advanced Practice Midwife
DX: O42.02 Full-term premature rupture of membranes, onset of labor within 24 hours of rupture (principal); Z37.0 Single live birth; Z3A.38 38 weeks gestation of pregnancy; Z28.39 Other underimmunization status; O26.893 Other specified pregnancy related conditions, third trimester; Z67.91 Unspecified blood type, Rh negative; O99.344 Other mental disorders complicating childbirth; F41.8 Other specified anxiety disorders; Z82.79 Family history of other congenital malformations, deformations and chromosomal abnormalities; O99.52 Diseases of the respiratory system complicating childbirth; J45.990 Exercise induced bronchospasm; O99.72 Diseases of the skin and subcutaneous tissue complicating childbirth; L20.9 Atopic dermatitis, unspecified; O69.1XX0 Labor and delivery complicated by cord around neck, with compression, not applicable or unspecified; O76 Abnormality in fetal heart rate and rhythm complicating labor and delivery; O70.1 Second degree perineal laceration during delivery
CPT/HCPCS: 36415; 82945; 85027; 86850; 86900; 86901; 86870; G0378